=== PATIENT | female | born 2000 | race Caucasian/White ===

== ENCOUNTER 2023-12-23 23:20 | Inpatient (IN) | payer OTHER ==
[~2023-12-23] VITALS: Ht 160 cm; Wt 68.0 kg
[2023-12-23 23:20] VITALS: BP 116/89; PULSE 88; RESP 20; TEMP 98.2; O2SAT 98
[2023-12-23 23:25] VITALS: O2SAT 98
[2023-12-23 23:45] LABS: BASOPHILS # (AUTO) 0.1 K/uL (0.00-0.22); BASOPHILS % (AUTO) 0.7 % (0.0-2.0); EOSINOPHILS # (AUTO) 0.2 K/uL (0-0.4); EOSINOPHILS % (AUTO) 1.2 % (0.0-4.0); HEMATOCRIT 33.3 % (36-48); HEMOGLOBIN 11.2 g/dL (12.0-16.0); LYMPHOCYTES # (AUTO) 2.6 K/uL (2.5-16.5); LYMPHOCYTES % (AUTO) 15.2 % (20.5-51.1); MEAN CORPUSCULAR HEMOGLOBIN 27 pg (27-31); MEAN CORPUSCULAR HGB CONC 34 g/dL (33-37); MEAN CORPUSCULAR VOLUME 80.9 fL (80-94); MONOCYTES % (AUTO) 6.1 % (1.7-9.3); NEUTROPHILS % (AUTO) 76.8 % (42.2-75.2); PLATELET COUNT (AUTO) 316 K/uL (140-450); RED BLOOD CELL COUNT(AUTO) 4.11 MIL/uL (4.20-5.40); RED CELL DISTRIBUTION WIDTH 15.6 % (11.6-13.7)
[2023-12-24 00:11] LABS: APPEARANCE,URINE CLEAR (CLEAR); BILIRUBIN,URINE 1+ (NEGATIVE); BLOOD, URINE 3+ (NEGATIVE); COLOR,URINE RED (YELLOW); LEUKOCYTE ESTERASE ,URINE 2+ (NEGATIVE); NITRITE, URINE NEGATIVE (NEGATIVE); PH,URINE 7.5 (5.0-9.0); PROTEIN,URINE 2+ (NEGATIVE); UGLUCOSE NEGATIVE (NEGATIVE); UROBILINOGEN,URINE 0.2 EU/dL (0.2 - 1)
[2023-12-24 00:17] LABS: BACTERIA,URINE 10-30 (MOD) /HPF (None Seen); ICTOTEST POSITIVE (NEGATIVE); RBC,URINE 11-20 (MOD) /HPF (0-5)
[2023-12-24 00:18] LABS: MUCUS,URINE 1+ /LPF (None Seen); SQUAMOUS EPITHELIAL CELL,UR 4-10 (MOD) /LPF (0-3 (FEW))
[2023-12-24] MEDS: NACL 0.9% 1,000 ML IV ONE (00:55)
[2023-12-24] MEDS: MORPHINE SULFATE 4 MG/ML SYR IVP ONE (01:34)
[2023-12-24] MEDS: ONDANSETRON 4 MG/2 ML VIAL IVP ONE (01:34)
[2023-12-24 02:10] VITALS: O2SAT 98
[2023-12-24] MEDS ORDERED: ONDANSETRON 4 MG/2 ML VIAL IVP PRN (02:30)
[2023-12-24] MEDS ORDERED: OXYTOCIN/0.9 % SODIUM CHLORIDE 500 ML IV SCH (02:30)
[2023-12-24] MEDS ORDERED: MORPHINE SULFATE 10 MG/ML VIAL IVP PRN (02:30)
[2023-12-24 03:00] VITALS: BP 123/71; PULSE 78; RESP 18; TEMP 97.3
[2023-12-24] MEDS ORDERED: PREN-537 PO (04:28)
[2023-12-24] MEDS: LACTATED RINGERS 1,000 ML IV SCH (05:02)
== END 2023-12-24 07:00 | disposition home or self-care (01) | DRG 832 ==
LOC: MED 23:20 → MLD 12-24 01:40
PROVIDERS: ADMIT Obstetrics & Gynecology; ATTEND Obstetrics & Gynecology
DX: O20.0 Threatened abortion (principal); N39.0 Urinary tract infection, site not specified; O41.02X0 Oligohydramnios, second trimester, not applicable or unspecified; O23.42 Unspecified infection of urinary tract in pregnancy, second trimester; O99.012 Anemia complicating pregnancy, second trimester; O35.BXX0 Maternal care for other (suspected) fetal abnormality and damage, fetal cardiac anomalies, not applicable or unspecified; Z3A.16 16 weeks gestation of pregnancy
CPT/HCPCS: 36415; 76815; 81001; 84702; 85025; 86850; 86886; 86900; 86901; 87086; 96361; 96374; 96375; 99291; J2270; J2405; J7120; Q0092